=== PATIENT | female | born 1990 | race Two or more races ===

== ENCOUNTER 2017-02-20 16:20 | Emergency (ER) | payer MEDICAID ==
[~2017-02-20] VITALS: Ht 152.4 cm; Wt 46.7 kg
[2017-02-20 17:18] LABS: Basophils # (auto) 0 uL; Basophils % (auto) 0.5 % (0.0-2.0); DEFINITIVE VIEW TRANSMISSION; Eosinophils # (auto) 0 uL; Eosinophils % (auto) 0.4 % (0.0-7.0); Hematocrit 28.4 % (36.0-46.0); Hemoglobin 9.1 g/dL (12.2-16.2); Lymphocytes # (auto) 1.8 uL; Lymphocytes % (auto) 33.1 % (10.0-50.0); Mean Corpuscular Hemoglobin 22.8 pg (28.0-32.0); Mean Corpuscular Volume 71.2 fL (80.0-100.0); Mean Platelet Volume 8.8 fL (7.4-10.4); Monocytes # (auto) 0.5 uL; Monocytes % (auto) 8.8 % (0.0-12.0); Neutrophils # (auto) 3.2 uL; Neutrophils % (auto) 57.2 % (37.0-80.0); Platelet Count (auto) 250 10^3/uL (140-450); White Blood Cell 5.6 10^3/uL (4.4-10.8)
[2017-02-20 17:19] LABS: Red Cell Distribution Width 24.9 % (11.6-16.0)
[2017-02-20 17:36] LABS: Albumin 3.4 g/dL (3.4-5.0); BUN/Creatinine Ratio 17.4; Calcium 8.4 mg/dL (8.5-10.1); Potassium 3.6 mmol/L (3.5-5.1)
[2017-02-20 17:39] LABS: Bilirubin, Total 0.5 mg/dL (0.2-1.0); Total Protein 6.4 g/dL (6.4-8.2)
[2017-02-20 18:16] LABS: Anisocytosis Moderate; Platelet Estimate Adequate
[2017-02-20 18:17] LABS: Hypochromia Moderate; Microcytosis Moderate; Ovalocytes FEW
[2017-02-20 22:21] LABS: Urine Bilirubin Negative (Negative); Urine Blood Negative /uL (Negative); Urine Color Yellow (Yellow); Urine Glucose Normal (Normal); Urine Ketone Negative (Negative); Urine Mucus FEW (None Seen); Urine Nitrite Negative (Negative); Urine RBC <1 /hpf (0 - 4); Urine Squamous Epithelial Cell FEW /hpf (<5); Urine Urobilinogen Normal (Negative); Urine pH 6.5 (5.0-8.0)
[2017-02-21 00:02] VITALS: BP 109/62
== END 2017-02-21 00:02 | disposition home or self-care (01) ==
LOC: ER 16:24
DX: O20.0 Threatened abortion (principal); Z3A.09 9 weeks gestation of pregnancy
CPT/HCPCS: 36415; 76801; 80053; 81001; 84702; 85025

== ENCOUNTER 2017-05-09 15:40 | Observation (INO) | payer MEDICAID | END 2017-05-09 16:20 | disposition home or self-care (01) | DRG 955 | LOC: LDRP 15:40 | PROVIDERS: ADMIT Specialist; ATTEND Specialist | DX: O44.00 Complete placenta previa NOS or without hemorrhage, unspecified trimester (principal); Z3A.00 Weeks of gestation of pregnancy not specified | CPT/HCPCS: 59025; 81002; G0378 ==

== ENCOUNTER 2020-09-03 01:59 | Emergency (ER) | payer MEDICAID ==
[~2020-09-03] VITALS: Ht 152.4 cm; Wt 72.6 kg
[2020-09-03 02:06] VITALS: BP 143/99
== END 2020-09-03 04:14 ==
LOC: ER 01:59
DX: R53.83 Other fatigue (principal); M54.2 Cervicalgia; R51.9 Headache, unspecified; Y09 Assault by unspecified means
CPT/HCPCS: 70450; 72125

== ENCOUNTER 2021-03-13 04:37 | Emergency (ER) | payer MEDICAID, OTHER ==
[~2021-03-13] VITALS: Ht 172.7 cm; Wt 79.8 kg
[2021-03-13 06:47] VITALS: BP 127/87
[2021-03-13] MEDS ORDERED: SODIUM CHLORIDE 0.9% 1,000 ML IV ONE ×2 (07:15)
[2021-03-13] MEDS ORDERED: HYDROcodone-ACET 10/325MG TAB PO ONE (07:30)
[2021-03-13] MEDS ORDERED: IBUPROFEN 800 MG TAB PO ONE (08:30)
== END 2021-03-13 12:24 | disposition home or self-care (01) ==
LOC: EDBD 04:37 → ER 04:37
DX: S82.62XA Displaced fracture of lateral malleolus of left fibula, initial encounter for closed fracture (principal); M54.2 Cervicalgia; V43.52XA Car driver injured in collision with other type car in traffic accident, initial encounter; Y93.89 Activity, other specified; Y92.488 Other paved roadways as the place of occurrence of the external cause; Y99.8 Other external cause status
CPT/HCPCS: 29515; 36415; 70450; 70486; 71045; 72125; 73562; 73610; 80320; 96360; 96361

== ENCOUNTER 2021-11-08 08:31 | Emergency (ER) | payer MEDICAID ==
[~2021-11-08] VITALS: Ht 152.4 cm; Wt 68.0 kg
[2021-11-08 09:28] VITALS: BP 118/70
[2021-11-08] MEDS ORDERED: KETOROLAC TROMETH 60MG/2ML VIAL IM ONE (10:30)
[2021-11-08] MEDS ORDERED: ONDANSETRON ODT 4 MG TAB PO ONE (10:30)
== END 2021-11-08 12:12 | disposition home or self-care (01) ==
LOC: ER 08:31
DX: S93.402A Sprain of unspecified ligament of left ankle, initial encounter (principal); X58.XXXA Exposure to other specified factors, initial encounter; Y93.89 Activity, other specified; Y92.89 Other specified places as the place of occurrence of the external cause; Y99.8 Other external cause status
CPT/HCPCS: 73610; 96372; 99283; J1885; Q0162